=== PATIENT | female | born 2000 | race Caucasian/White ===

== ENCOUNTER 2018-09-19 21:07 | Emergency (ER) | payer BC ==
--- NOTE | 2018-09-19 21:58 | RAD ---
EXAM: XR Left Foot Complete, 3 or More Views CLINICAL HISTORY: 17 years old and is Female; left medial midfoot pain 4 weeks TECHNIQUE: Frontal, lateral and oblique views of the left foot. COMPARISON: No relevant prior studies available. FINDINGS: Limitations: None. Bones/joints: Unremarkable. No acute fracture. No dislocation. Soft tissues: Unremarkable. No radiopaque foreign body. IMPRESSION: No abnormality noted. Electronically signed by: Hannah Sanderson MD 09/19/2018 9:56 PM CDT
--- NOTE | 2018-09-19 22:09 | ED.PDOC ---
History of Present Illness - General Chief Complaint: Lower Extremity Injury Stated Complaint: left foot pain Time Seen by Provider: 09/19/18 21:32 Source: patient Exam Limitations: no limitations - History of Present Illness Initial Comments: The patient is a 17-year-old female presenting to the emergency room secondary to left medial mid foot pain after being on it most of the day. The patient's only injury was reported approximately 5 months ago when she dropped a box on her foot. No palpable deformity. No crepitus. No obvious instability on her weight. She is neurovascularly intact. No bruising. No laceration. No point tenderness. Timing/Duration: other - one month Severity: mild Improving Factors: immobilization Worsening Factors: movement Associated Symptoms: denies symptoms Allergies/Adverse Reactions: Allergies NO KNOWN ALLERGY Allergy (Verified 09/28/13 12:38) Review of Systems - Review of Systems Constitutional: States: no symptoms reported EENTM: States: no symptoms reported Respiratory: States: no symptoms reported Cardiology: States: no symptoms reported Gastrointestinal/Abdominal: States: no symptoms reported Genitourinary: States: no symptoms reported Musculoskeletal: States: see HPI Skin: States: no symptoms reported Neurological: States: no symptoms reported All other Systems: No Change from Baseline Past Medical History (General) - Patient Medical History Hx Seizures: No Hx Stroke: No Hx Dementia: No Hx Asthma: No Hx of COPD: No Hx Cardiac Disorders: No Hx Congestive Heart Failure: No Hx Pacemaker: No Hx Hypertension: No Hx Thyroid Disease: No Hx Diabetes: No Hx Gastroesophageal Reflux: No Hx Renal Disease: No Hx Cancer: No Hx of HIV: No Hx Hepatitis C: No Hx MRSA: No Surgical History: no surgical history - Vaccination History Hx Tetanus, Diphtheria Vaccination: No Hx Influenza Vaccination: No Hx Pneumococcal Vaccination: No Immunizations Up to Date: No - Social History Hx Tobacco Use: No Hx Alcohol Use: No Hx Substance Use: No Hx Substance Use Treatment: No Hx Depression: No Family Medical History - Family History Mother Family History: Unknown Physical Exam - Physical Exam General Appearance: Alert, Comfortable, No apparent distress Eye Exam: bilateral normal Ears, Nose, Throat: hearing grossly normal Neck: full range of motion Respiratory: no respiratory distress, no accessory muscle use Cardiovascular/Chest: normal peripheral pulses, no edema Peripheral Pulses: dorsalis pedis,right: 2+, dorsalis pedis,left: 2+ Rectal Exam: deferred Back Exam: normal inspection Extremity: normal range of motion, no pedal edema, no calf tenderness, normal capillary refill, other - see history of present illness Neurologic: decatizer II-XII nml as tested, no motor/sensory deficits, alert, normal mood/affect, oriented x 3 Skin Exam: normal color Comments: Vital Signs - 24 hr 09/19/18 21:30 Temperature 97.8 F Pulse Rate [ 98 H left] Respiratory 18 Rate Blood Pressure 124/95 [left] O2 Sat by Pulse 97 Oximetry Progress - Progress Progress: 09/19/18 22:09 the patient is a 17-year-old female presenting with left medial mid foot pain for the better part of a month. This is either a mild midfoot sprain or arthralgia from a previous foot trauma earlier in the year. Either way the patient needs to avoid strenuous activity on the foot for a couple of weeks. She needs to avoid wearing heels shoes for a little while. X-ray of the foot showed no evidence of any fracture or dislocation. No obvious evidence of any advanced arthritis. If the pain is not improving over the next few weeks then she can elect to do a trial of a couple of weeks in a walking boot with that foot to see if it helps her symptoms. [id number] anti-inflammatories such as Motrin or Aleve can also help short-term. ER warnings were given. Departure - Departure Clinical Impression: Foot pain, left Disposition: Discharge to Home or Self Care Condition: Fair Departure Forms: ED Discharge - Pt. Copy, Patient Portal Self Enrollment Diet: regular diet Activity: other Referrals: Chris Snow MD [Primary Care Provider] - 1-2 Weeks Additional Instructions: the patient is a 17-year-old female presenting with left medial mid foot pain for the better part of a month. This is either a mild midfoot sprain or arthralgia from a previous foot trauma earlier in the year. Either way the patient needs to avoid strenuous activity on the foot for a couple of weeks. She needs to avoid wearing heels shoes for a little while. X-ray of the foot showed no evidence of any fracture or dislocation. No obvious evidence of any advanced arthritis. If the pain is not improving over the next few weeks then she can elect to do a trial of a couple of weeks in a walking boot with that foot to see if it helps her symptoms. [id number] anti-inflammatories such as Motrin or Aleve can also help short-term. ER warnings were given.
[2018-09-19 22:20] VITALS: BP 112/83; TEMP 97.1; O2SAT 99
== END 2018-09-19 22:18 | disposition home or self-care (01) ==
LOC: ER 21:07
DX: M79.672 Pain in left foot (principal); Z87.828 Personal history of other (healed) physical injury and trauma